=== PATIENT | female | born 1990 | race Caucasian/White ===

== ENCOUNTER 2024-10-09 10:06 | Outpatient (REF) | payer BC, SELFPAY ==
[2024-10-13 12:00] LABS: Chlamydia Result Negative (Negative); GC Result Negative (Negative)
== END 2024-10-09 10:07 | disposition home or self-care (01) ==
LOC: LBN 10:06
PROVIDERS: Visit Provider Physician Assistant
DX: R30.0 Dysuria (principal); Z11.3 Encounter for screening for infections with a predominantly sexual mode of transmission
CPT/HCPCS: 87491; 87591; 87480; 87510; 87660